=== PATIENT | female | born 1965 | race Caucasian/White ===

== ENCOUNTER → 2022-12-03 | Outpatient (CLI) | payer SELFPAY ==
--- NOTE | 2022-12-03 15:22 | Diagnostic Imaging Report ---
CT CARDIAC CALCIUM SCORE INDICATION: Encounter for screening for cardiovascular disorders. COMPARISON: None available. TECHNIQUE: Limited noncontrast CT of the chest. FINDINGS: Coronary artery calcifications are present. The total coronary artery calcium score ([place]) is 272.6. Calcification is present in the left anterior descending, left circumflex and right coronary arteries. This degree of coronary artery calcifications places the patient in greater than the 90th percentile for age and gender. No incidental abnormality in the chest that would require further workup. IMPRESSION: 1. Moderate coronary artery calcium with a total score of 272.6. Dictated by: Dictated on workstation # [id number]
== END ==
LOC: RAD FS 10:38
PROVIDERS: ATTEND Registered Nurse Emergency
DX: Z13.6 Encounter for screening for cardiovascular disorders (principal); Z82.49 Family history of ischemic heart disease and other diseases of the circulatory system
CPT/HCPCS: 75571